=== PATIENT | male | born 1930 | race Caucasian/White ===

== ENCOUNTER 2017-08-28 22:30 | Emergency (ER) | payer OTHER ==
[~2017-08-28] VITALS: Ht 185.4 cm; Wt 113.4 kg
--- NOTE | 2017-08-28 22:50 | NUR ---
PT TO ER BED 6, PT BIBRA C/O LEFT LOWER LEG PAIN AND SWELLING X 4 HOURS. HX OF CHF. PT ON 4LPM OF O2 VIA N/C AT HOME. LEFT LEG APPEARS SWOLLEN AND RED. PT PLACED ON STOVE [employer]AGE [employer]PER[employer]. PT VSS/RESP EVEN UNLABORED/NAD NOTED/SKIN WARM AND DRY/DENIES N-V-D/AOX4.AWAITING MD ORTIZ.
--- NOTE | 2017-08-28 22:55 | NUR ---
AT BEDSIDE FOR EVAL.
--- NOTE | 2017-08-28 22:57 | NUR ---
18G IV TO LAC USING ASEPTIC TECH, BLOOD CULT X 2 AND BLOOD HANDED OVER TO LAB AT THE BEDSIDE.
[2017-08-28 23:07] LABS: BASOPHILS % (AUTO) 0.1 % (0.0-2.0); EOSINOPHILS % (AUTO) 0.2 % (0.0-6.0); HEMATOCRIT 39 % (39-51); HEMOGLOBIN 12.4 g/dL (13.5-17.5); LYMPHOCYTES # (AUTO) 0.3 /CMM (0.8-4.8); LYMPHOCYTES % (AUTO) 3.8 % (20.0-44.0); MEAN CORPUSCULAR HEMOGLOBIN 26 PG (26.0-33.0); MEAN CORPUSCULAR HGB CONC 32 g/dl (31.0-36.0); MEAN CORPUSCULAR VOLUME 83 fL (80-96); MONOCYTES # (AUTO) 0.4 /CMM (0.1-1.30); NEUTROPHILS # (AUTO) 6.6 /CMM (1.8-8.9); NEUTROPHILS % (AUTO) 90.9 % (43.0-81.0); PLATELET COUNT (AUTO) 178 /CMM (150-450); RDW COEFFICIENT OF VARIATION 19.1 (11.5-15.0); RED BLOOD CELL COUNT(AUTO) 4.71 MIL/uL (4.5-6.0); WHITE BLOOD COUNT (AUTO) 7.2 K/uL (4.3-11.0)
[2017-08-28 23:16] LABS: CALCIUM, SERUM 9.6 mg/dL (8.5-10.1); CARBON DIOXIDE 28 mmol/L (21-32); CHLORIDE 107 mmol/L (98-107); CREATININE 1.4 mg/dL (0.6-1.3); GLUCOSE 113 mg/dL (74-106); SODIUM SERUM 141 mmol/L (136-145); UREA NITROGEN, BLOOD 19 mg/dL (7-18)
[2017-08-28 23:23] LABS: INR 1.1 (0.87-1.13); PROTHROMBIN TIME 11.4 SECS (9.5-12.7)
[2017-08-28 23:37] LABS: ALANINE AMINOTRANSFERASE 32 U/L (12-78); ALBUMIN 3.5 g/dL (3.4-5.0); ALKALINE PHOSPHATASE 70 U/L (46-116); ASPARTATE AMINOTRANSFERASE 28 U/L (15-37); B-TYPE NATRIURETIC PEPTIDE 1186 PG/ML (0-125); BILIRUBIN,DIRECT 0.4 mg/dL (0.0-0.2); BILIRUBIN,TOTAL 1.7 mg/dL (0.2-1.0); TOTAL PROTEIN, SERUM 6.6 g/dL (6.4-8.2)
[2017-08-28 23:38] LABS: TROPONIN I 0.102 ng/mL (0.00-0.056)
--- NOTE | 2017-08-28 23:39 | NUR ---
ULTRASOUND AT BEDSIDE.
[2017-08-29] MEDS ORDERED: LEVOFLOXACIN 750 MG /D5W 150ML PIGGYBACK IV ONE
[2017-08-29] MEDS ORDERED: ASPIRIN 325 MG TABLET PO ONE
[2017-08-29] MEDS ORDERED: AZTREONAM 1 G in IV NS 0.9% 100 ML IV ONE ×2
[2017-08-29] MEDS ORDERED: VANCOMYCIN 1 GM in IV D5W 250 ML IV ONE ×2
[2017-08-29] MEDS ORDERED: MORPHINE SULFATE INJ 2 MG/ML DISP.SYRIN IV ONE
[2017-08-29] MEDS ORDERED: ASPIRIN 325 MG TABLET ONE (00:08)
[2017-08-29] MEDS ORDERED: AZTREONAM 1 G VIAL ONE (00:08)
[2017-08-29] MEDS ORDERED: LEVOFLOXACIN 750 MG /D5W 150ML 150 ML IV ONE (00:08)
[2017-08-29] MEDS ORDERED: VANCOMYCIN 1 GM VIAL ONE (00:08)
--- NOTE | 2017-08-29 01:55 | NUR ---
AND DAUGHTER AT BEDSIDE SPEAKING WITH PATIENT. VSS.
[2017-08-29 01:56] VITALS: BP 105/60
--- NOTE | 2017-08-29 02:20 | NUR ---
PT ACCEPTED TO [facility] BY DR MARION. # FOR REPORT [phone]. ETA [phone]
--- NOTE | 2017-08-29 02:36 | NUR ---
REPORT CALLED TO TL DILLARD FOR [facility] AT [place].
--- NOTE | 2017-08-29 03:14 | NUR ---
REPORT GIVEN TO RN WITH [facility]. PT BEING TRANSPORTED TO [facility].
== END 2017-08-29 03:21 | disposition short-term general hospital (02) ==
LOC: ER 22:34
DX: I21.4 Non-ST elevation (NSTEMI) myocardial infarction (principal); L03.116 Cellulitis of left lower limb; I11.0 Hypertensive heart disease with heart failure; I50.9 Heart failure, unspecified; N28.9 Disorder of kidney and ureter, unspecified; J18.9 Pneumonia, unspecified organism; I45.10 Unspecified right bundle-branch block; F03.90 Unspecified dementia, unspecified severity, without behavioral disturbance, psychotic disturbance, mood disturbance, and anxiety
CPT/HCPCS: 36415; 71010; 80048; 80076; 83605; 83880; 84484; 85025; 85730; 87040 ×2; 87077; 87186; 93005; 93971; 96365; 96367; 99285; A4606; J1956; J3370; J3490 ×2; J7030 ×2; Z7610